=== PATIENT | male | born 1935 | race Two or more races ===

== ENCOUNTER 2020-07-09 13:20 | Outpatient (CLI) | payer MEDICARE | END 2020-07-09 23:59 | disposition home or self-care (01) | LOC: MSC 13:20 | PROVIDERS: ATTEND Internal Medicine | DX: I48.91 Unspecified atrial fibrillation (principal); Z79.01 Long term (current) use of anticoagulants; I49.5 Sick sinus syndrome; Z95.0 Presence of cardiac pacemaker; I10 Essential (primary) hypertension; E78.5 Hyperlipidemia, unspecified; H91.90 Unspecified hearing loss, unspecified ear; N40.0 Benign prostatic hyperplasia without lower urinary tract symptoms ==

== ENCOUNTER 2021-10-04 09:00 | Outpatient (CLI) | payer MEDICARE | END 2021-10-04 23:59 | disposition home or self-care (01) | LOC: MSC 09:00 | PROVIDERS: ATTEND Internal Medicine | DX: I48.91 Unspecified atrial fibrillation (principal); I49.5 Sick sinus syndrome; Z95.0 Presence of cardiac pacemaker; I10 Essential (primary) hypertension; E78.5 Hyperlipidemia, unspecified; N40.0 Benign prostatic hyperplasia without lower urinary tract symptoms; H91.90 Unspecified hearing loss, unspecified ear ==

== ENCOUNTER 2024-08-19 14:16 | Emergency (ER) | payer MEDICARE ==
[~2024-08-19] VITALS: Ht 177.8 cm; Wt 70.3 kg
[2024-08-19] MEDS: ACETAMINOPHEN W/ CODEINE#3 1 EA TABLET PO ONE (15:30)
[2024-08-19] MEDS ORDERED: LIDOCAINE 5% (PATCH) 1 EA PATCH TP ONE (15:32)
[2024-08-19] MEDS ORDERED: ACETAMINOPHEN W/ CODEINE#3 1 EA TABLET ONE (15:33)
[2024-08-19] MEDS: LIDOCAINE 5% (PATCH) 1 EA PATCH TP ONE (15:53)
[2024-08-19] MEDS: IV NS 0.9% 500 ML BAG IV ONE (15:54)
[2024-08-19 16:07] LABS: BASOPHILS % (AUTO) 0.5 % (0.0-2.0); EOSINOPHILS # (AUTO) 0.1 K/uL (0.0-0.7); HEMATOCRIT 42 % (39-51); LYMPHOCYTES % (AUTO) 14.7 % (20.0-44.0); MEAN CORPUSCULAR HEMOGLOBIN 31 PG (26.0-33.0); MEAN CORPUSCULAR HGB CONC 34 g/dl (31.0-36.0); MEAN CORPUSCULAR VOLUME 92 fL (80-96); MONOCYTES # (AUTO) 0.6 K/uL (0.1-1.30); MONOCYTES % (AUTO) 9.2 % (2.0-12.0); NEUTROPHILS # (AUTO) 5.3 K/uL (1.8-8.9); NEUTROPHILS % (AUTO) 74.6 % (43.0-81.0); PLATELET COUNT (AUTO) 181 K/uL (150-450); RED CELL DISTRIBUTION WIDTH 14.3 % (11.5-15.0); WHITE BLOOD COUNT (AUTO) 7.1 K/uL (4.3-11.0)
[2024-08-19 16:17] LABS: CALCIUM, SERUM 9.7 mg/dL (8.5-10.1); CARBON DIOXIDE 25 mmol/L (21-32); CHLORIDE 109 mmol/L (98-107); CREATININE 1.4 mg/dL (0.6-1.3); GLUCOSE 106 mg/dL (74-106); POTASSIUM 4.6 mmol/L (3.5-5.1); SODIUM SERUM 145 mmol/L (136-145); UREA NITROGEN, BLOOD 25 mg/dL (7-18)
[2024-08-19] MEDS ORDERED: IOHEXOL-350 100 ML VIAL IV ONE (16:21)
[2024-08-19] MEDS ORDERED: IV NS 0.9% 250 ML IV ONE (16:22)
[2024-08-19] MEDS ORDERED: LIDO30AD10 TP (19:01)
[2024-08-19 19:15] VITALS: BP 140/69; TEMP 98.4; O2SAT 99
== END 2024-08-19 19:16 | disposition home or self-care (01) ==
LOC: ER 14:18
DX: M54.2 Cervicalgia (principal); R51.9 Headache, unspecified; I10 Essential (primary) hypertension; E78.00 Pure hypercholesterolemia, unspecified; I25.10 Atherosclerotic heart disease of native coronary artery without angina pectoris; Z95.0 Presence of cardiac pacemaker; Z95.5 Presence of coronary angioplasty implant and graft; Z79.01 Long term (current) use of anticoagulants
CPT/HCPCS: 99285; 70498; 70496; 85025; 80048; 36415; 70450; J7050; J7040; A4223; Q9967